=== PATIENT | male | born 1995 | race Caucasian/White ===

== ENCOUNTER 2022-04-11 20:43 | Emergency (ER) | payer MEDICAID, OTHER ==
[~2022-04-11] VITALS: Ht 172.7 cm; Wt 105.0 kg
[2022-04-11 20:52] VITALS: BP 142/87
[2022-04-11 23:18] LABS: CHLORIDE 108 mEq/L (98-107)
[2022-04-11 23:22] LABS: BASOPHILS % 0.5 % (0.0-2.0); EOSINOPHILS % 5.1 % (0.0-5.0); HEMATOCRIT. 47.2 % (42.0-52.0); HEMOGLOBIN. 16.5 g/dL (14.0-18.0); MEAN CORPUSCULAR HEMOGLOBIN 32.3 pg (28.0-32.0); MEAN CORPUSCULAR VOLUME 92.5 fL (80.0-94.0); MEAN PLATELET VOLUME 9.5 fl (7.4-10.4); MONOCYTES % 9.1 % (2.0-8.0); NEUTROPHILS % 59.3 % (40.0-76.0); PLATELET 200 x1000/uL (130-400); RED CELL DISTRIBUTION WIDTH 12.8 % (11.6-14.6)
[2022-04-12] MEDS ORDERED: OMEP20TA23 MT (02:07)
[2022-04-12] MEDS ORDERED: ONDA4TAB11 PO (02:07)
== END 2022-04-12 02:30 | disposition home or self-care (01) ==
LOC: ER 20:43
DX: R11.2 Nausea with vomiting, unspecified (principal); K21.9 Gastro-esophageal reflux disease without esophagitis; Z88.2 Allergy status to sulfonamides; Z98.890 Other specified postprocedural states
CPT/HCPCS: 36415; 80053; 85025; 99283